=== PATIENT | male | born 1990 | race Caucasian/White ===

== ENCOUNTER 2024-07-30 10:29 | Emergency (ER) | payer MEDICAID, SELFPAY ==
--- NOTE | 2024-07-30 10:48 | XR_ITS ---
Examination: CT abdomen and pelvis without contrast. Coronal 3-D reconstructions. Sagittal 2-D reconstructions. Date and time of exam:July 30, 1999 2512 noon INDICATIONS: Generalized abdominal pain and nausea vomiting beginning today CTDI: vol (mGy): 5.18 DLP: (mGycm): 310 Technique: Axial images of the abdomen have been obtained, 3 mm slice thickness Intravenous contrast material has not been administered. Low dose protocols were performed. One or more of the following dose reduction techniques were used; automated exposure control, adjustment of the mA and/or KV according to patient size, use of iterative reconstruction technique. Findings: No focal liver or splenic lesions Gallbladder is not visualized No pancreatic mass No renal or ureteral calculi, no hydronephrosis Aorta normal size No pericecal inflammatory change No diverticulitis Contracted urinary bladder Intact osseous structures IMPRESSION: No renal or ureteral calculi, no hydronephrosis No CT findings of appendicitis bowel obstruction or diverticulitis
--- NOTE | 2024-07-30 10:49 | PD.EDRME ---
Rapid Medical Screening Exam RME Arrival date/time: 07/30/24 10:29 34-year-old male with no known medical history presents to the emergency room with a chief complaint of 10 out of 10 upper abdominal pain, nausea, vomiting x 1 day. I have greeted and performed a focused initial assessment of this patient. A comprehensive ED assessment and evaluation of the patient, analysis of all test results, and completion of the medical decision making process will be conducted by additional ED providers. Chief Complaint: Nausea/Vomiting/Diarrhea Vital signs reviewed by provider: Yes
[2024-07-30 11:02] VITALS: BP 126/77; PULSE 89; RESP 22; TEMP 36.4; O2SAT 100; BMI 18.1
[2024-07-30] MEDS: HYDROcodone/APAP 5/325 TABLET 1 TAB PO (11:17)
[2024-07-30] MEDS: ONDANSETRON ODT 4 MG TABRAP PO (11:18)
[2024-07-30] MEDS: MG HYD/AL HYD/SIME (Maalox Reg) SUSP 30 ML UDC PO (11:18)
[2024-07-30 11:26] LABS: Basophils # (Auto) 0.1 Thou/mm3 (0.0-0.2); Basophils % (Auto) 1 % (0-2.5); Eosinophils % (Auto) 0 % (0-10); Hematocrit 46.1 % (41.0-53.0); Hemoglobin 15.9 g/dL (13.5-16.0); Immature Granulocytes % (Auto) 0 % (0-0); Immature Granulocytes Auto 0.03 Thou/mm3 (0.00-0.00); Lymphocytes # (Auto) 0.8 Thou/mm3 (1.0-4.8); Lymphocytes % (Auto) 7 % (10-50); Mean Corpuscular HGB Conc 34.5 g/dl (31.0-37.0); Mean Corpuscular Hemoglobin 30.6 pg (25.0-35.0); Mean Corpuscular Volume 89 fL (80-100); Monocytes # (Auto) 0.4 Thou/mm3 (0.0-0.8); Monocytes % (Auto) 3 % (0-12); Neutrophils # (Auto) 9.5 Thou/mm3 (1.8-7.7); Neutrophils % (Auto) 89 % (37-80); Nucleated Red Blood Cell % 0 /100 WBC (0); Platelet Count 293 Thou/mm3 (140-440); RDW Standard Deviation 39.3 fL (35.1-43.9); Red Blood Count 5.19 Miln/mm3 (4.50-5.90); White Blood Count 10.7 Thou/mm3 (3.8-10.6)
[2024-07-30 11:47] LABS: Alanine Aminotransferase 18 U/L (10-49); Albumin, Serum 5.2 gm/dL (3.5-5.0); Alkaline Phosphatase 81 U/L (46-116); Anion Gap 11 (7-16); Aspartate Amino Transferase 19 U/L (0-34); BUN/Creatinine Ratio 10 Ratio (12-20); Bilirubin,Total 1.3 mg/dL (0.3-1.2); Blood Urea Nitrogen 10 mg/dL (9-23); Calcium 10.8 mg/dL (8.3-10.6); Calcium (Corrected) 10.8 mg/dL (8.5-10.1); Carbon Dioxide 25.5 mMol/L (20.0-31.0); Chloride 104 mMol/L (98-107); Estimated Creatinine Clearance 95.9 mL/min (>60); Globulin 2.6 gm/dL (2.3-3.5); Glucose 167 mg/dL (74-106); Lipase 50 U/L (12-53); Osmolality,Calculated 282 (275-295); Potassium 4.6 mMol/L (3.4-5.1); Sodium 140 mMol/L (136-145); Total Protein 7.8 gm/dL (5.7-8.2); eGFR > 60 See Note
[2024-07-30 15:05] VITALS: BP 118/66; PULSE 87; RESP 18; TEMP 36.6; O2SAT 100
[2024-07-30] MEDS: SODIUM CHLORIDE 0.9% 1000 ML 1,000 ML 999 ML IV (15:27)
[2024-07-30] MEDS: HYDROmorphone INJ 2 MG/ML VIAL 1 MG IVP (15:27)
[2024-07-30] MEDS: ONDANSETRON INJ 2 MG/ML INJ 2 ML 4 MG IV (15:27)
[2024-07-30 16:23] VITALS: BP 114/71; PULSE 76; RESP 18; TEMP 36.8; O2SAT 97
--- NOTE | 2024-07-30 16:32 | EDNOTE_ITS ---
Nausea/Vomit./Diarrhea-RME/HPI General Chief complaint: Nausea/Vomiting/Diarrhea Stated complaint: VOMITING, FACIAL NUMBBNESS Time Seen by Provider: 07/30/24 11:55 Arrival date/time: 07/30/24 10:29 RME / HPI RME / HPI Narrative: 07/30/24 10:29 34-year-old male with no known medical history presents to the emergency room with a chief complaint of 10 out of 10 upper abdominal pain, nausea, vomiting x 1 day. I have greeted and performed a focused initial assessment of this patient. A comprehensive ED assessment and evaluation of the patient, analysis of all test results, and completion of the medical decision making process will be conducted by additional ED providers. This section includes all my notes and documentations, including HPI, PE, and ED course.? Fabián Voss MD HPI: 34-year-old male here with about 24-hour history of vomiting and diarrhea. No hematemesis or coffee-ground emesis. No rectal bleeding or tarry stools. Reports abdominal cramping. No other complaints. ROS: All negative except as documented in HPI. Physical Exam: General:? Alert and oriented.? Appearance of malaise noted. Eyes:? Conjunctivae and lids clear.? ENT:? No nasal congestion.? Neck:? Supple.? Heart:? RRR.? Lungs:? No respiratory distress.? Good air movement.? No rhonchi, wheezing, rales.?? Abdomen:? Soft with equivocal tenderness, difficult to localize. Legs:? No clubbing, cyanosis, edema.? Skin:? Warm and dry.?? Neuro:? Alert and oriented X 3.?? I reviewed all diagnostic test results. My review of the CT report is? Blood tests unremarkable. At this point, diagnoses include?gastroenteritis. Treatment here included?IV fluid and Zofran and Dilaudid. Significant improvement noted. Recommended supportive care. Based on my best medical judgment, made decision no further evaluation or treatment indicated at this time.? Patient understands and agrees to the discharge instructions customized and printed, see below. Discharge Instructions from Dr. Voss: 1. After evaluation, you have stomach flu.? See attached handout on gastroenteritis. 2. This is caused by virus germs.? And we do not have good medications to kill the virus germs.? But your immune system will fight it off. 3. Your job is to stay hydrated.? Zofran for nausea/vomiting.? Increase oral fluid and maintain clear urine.? If dark or yellow, increase oral fluid. Clear liquid diet for 24 hours and advance slowly as tolerated. Tylenol with codeine for severe pain. 4. Do not take any medications to stop your diarrhea.? But try to replenish the fluid and electrolytes you are losing. 5. Some good choices are water (but not only water because it will cause electrolyte abnormalities), sports drinks like Gatorade (with less sugar content), coconut water, chicken stock, and other fluid with electrolytes (like Pedialyte). 6. See a private doctor on 08/01/2024 if not completely better. 7. Seek immediate medical care with worsening or with any concerns. Related Data Previous Rx's ?Medication ?Instructions ?Recorded fexofenadine 60 mg tablet (Flaca 60 mg PO BID #60 tabs 03/30/19 Allergy) ibuprofen 800 mg tablet 800 mg PO QID PRN pain #60 tabs 03/30/19 ibuprofen 600 mg tablet 600 mg PO Q6H #30 tabs 06/20/23 acetaminophen 300 mg-codeine 30 mg 2 tab PO TID PRN pain #10 tabs 07/30/24 tablet ondansetron 4 mg disintegrating 4 mg PO TID PRN nausea and 07/30/24 tablet vomiting 5 days #10 tabs Allergies Allergy/AdvReac Type Severity Reaction Status Date / Time No Known Allergies Allergy Verified 06/20/23 10:20 Review of Systems Review of Systems Systems Reviewed: All systems reviewed, normal except as documented Past Medical History Past Medical History CARDIAC: Negative Congestive Heart Failure RESPIRATORY: Negative Chronic Obstructive Pulmonary Disease (COPD) GENITOURINARY: Negative Renal Disease ENT: Positive Ear Infection ENDOCRINE: Negative Diabetes Mellitus Type 1 or Diabetes Mellitus Type 2 OTHER HISTORY: Positive Chicken Pox Social History SMOKING STATUS: Former smoker SUBSTANCE USE: does not use ED Exam Narrative Physical exam: As noted in HPI Course Quality Measures none Orders Category Date Time Status Saline [Insert IV] NOW Care 07/30/24 14:[address] abdomen pelvis wo con Stat Exams 07/30/24 10:48 Completed CBC Stat Lab 07/30/24 11:08 Completed CMP [Comprehensive Metabolic Panel] Stat Lab 07/30/24 11:08 Completed Lipase Stat Lab 07/30/24 11:08 Completed UA [Urinalysis] Stat Lab 07/30/24 10:48 Ordered Urine Culture Stat Lab 07/30/24 10:48 Ordered HYDROcodone*/APAP 5/325 [[place] 5/325] Med 07/30/24 10:48 Discontinued 1 tab PO X1 ONE HYDROmorphone INJ [Dilaudid Inj] Med 07/30/24 14:48 Discontinued 1 mg IVP X1 ONE Ondansetron Inj [Zofran Inj] Med 07/30/24 14:48 Discontinued 4 mg IV X1 ONE Ondansetron Odt [Zofran Odt] Med 07/30/24 10:48 Discontinued 4 mg PO X1 ONE Sodium Chloride 0.9% 1000 ml [Ns] 1,000 ml Med 07/30/24 14:48 Discontinued IV 999 mls/hr mg Hyd/Al Hyd/Asim Susp [Maalox Susp] Med 07/30/24 10:48 Discontinued 30 ml PO X1 ONE Vital Signs Vital signs: Vital Signs Temperature 97.5 F 07/30/24 11:02 Pulse Rate 89 07/30/24 11:02 Respiratory Rate 22 H 07/30/24 11:02 Blood Pressure 126/77 07/30/24 11:02 Pulse Oximetry (%) 100 07/30/24 11:02 Oxygen Delivery Method Room Air 07/30/24 11:02 Pulse ox is 100% on room air which is adequate. Nausea/Vomiting/Diarrhea Patient data External records reviewed:: [facility] previous records (I reviewed ED visit on 07/05/2023 ) Clinical information provided by:: patient and family Social determinants that could affect healthcare access:: none Patient has the following chronic illnesses:: None reported How is presenting disease/condition affected by chronic disease/condition?: no chronic disease Evaluation data The following diagnostics were reviewed and interpreted by me:: lab results and radiology exam(s) Lab and/or radiology exams considered but not ordered:: None Interpretation Summary: Gastroenteritis Medications / Prescriptions Medications / Prescriptions considered but not ordered:: None Medication administrations:: Medication Administration History Discontinued Medications Hydrocodone Bitart/Acetaminophen (Hydrocodone/Apap 5/325 Tablet) 1 tab PO X1 ONE Stop: 07/30/24 10:49 Last Admin: 07/30/24 11:17 Dose: 1 tab Documented By: DO Al Hydrox/Mg Hydrox/Simethicone (Mg Hyd/Al Hyd/Asim (Maalox Reg) Susp 30 Ml Udc) 30 ml PO X1 ONE Stop: 07/30/24 10:49 Last Admin: 07/30/24 11:18 Dose: 30 ml Documented By: DO Hydromorphone HCl (Hydromorphone Inj 2 Mg/Ml Vial) 1 mg IVP X1 ONE Stop: 07/30/24 14:49 Last Admin: 07/30/24 15:27 Dose: 1 mg Documented By: KISHAN Sodium Chloride (Ns) 1,000 mls @ 999 mls/hr IV .Q1H1M ONE Stop: 07/30/24 15:48 Last Admin: 07/30/24 15:27 Dose: 999 mls/hr Documented By: KISHAN Ondansetron HCl (Ondansetron Odt 4 Mg Tabrap) 4 mg PO X1 ONE; Protocol Stop: 07/30/24 10:49 Last Admin: 07/30/24 11:18 Dose: 4 mg Documented By: DO Ondansetron HCl (Ondansetron Inj 2 Mg/Ml Inj 2 Ml) 4 mg IV X1 ONE; Protocol Stop: 07/30/24 14:49 Last Admin: 07/30/24 15:27 Dose: 4 mg Documented By: KISHAN IV fluid and Zofran and Dilaudid helped him significantly. Consultations Consultation(s) initiated? (list below): No Diagnosis Nausea Differential Diagnosis: traveler's diarrhea, food poisoning, g astroenteritis, drug-induced nausea and vomiting, dehydration and other (Gatritis ) Most likely diagnosis given after review of the tests above:: Gastroenteritis Admission Indicated Admission indicated?: not indicated Explain why admission is indicated or not indicated:: Does not meet admission criteria Admission Request Was there a request for admission?: No Disposition Plan Disposition Plan: Discharge Discharge Attestation Discharge Attestation: The patient and all family members were given an opportunity to ask questions and understood the discharge instructions. Discharge instructions specifically effects, indications for sooner follow up or return to the emergency department, and the expected course of current diagnosis. Patient condition: Stable Discharge Plan Plan Patient Disposition: HOME (Self Care) Prescriptions/Referrals Prescriptions/Med Rec: New acetaminophen-codeine 300-30 mg tablet 2 tab PO TID MDD 6 PRN (Reason: pain) Qty: 10 0RF ondansetron 4 mg tablet,disintegrating 4 mg PO TID PRN (Reason: nausea and vomiting) 5 Days Qty: 10 0RF No Action ibuprofen 800 mg tablet 800 mg PO QID PRN (Reason: pain) Qty: 60 0RF fexofenadine [Flaca Allergy] 60 mg tablet 60 mg PO BID Qty: 60 0RF ibuprofen 600 mg tablet 600 mg PO Q6H Qty: 30 0RF Referrals: No Primary/Family,Physician [Primary Care Provider] - In 1 week Problem List Clinical Impression: Gastroenteritis Patient/Caregiver Discharge Instructions Discharge Activity: activity as tolerated Education Materials: ED Gastroenteritis, Viral (Adult) Additional Instructions: Discharge Instructions from Dr. Voss: 1. After evaluation, you have stomach flu.? See attached handout on gastroenteritis. 2. This is caused by virus germs.? And we do not have good medications to kill the virus germs.? But your immune system will fight it off. 3. Your job is to stay hydrated.? Zofran for nausea/vomiting.? Increase oral fluid and maintain clear urine.? If dark or yellow, increase oral fluid. Clear liquid diet for 24 hours and advance slowly as tolerated. Tylenol with codeine for severe pain. 4. Do not take any medications to stop your diarrhea.? But try to replenish the fluid and electrolytes you are losing. 5. Some good choices are water (but not only water because it will cause electrolyte abnormalities), sports drinks like Gatorade (with less sugar content), coconut water, chicken stock, and other fluid with electrolytes (like Pedialyte). 6. See a private doctor on 08/01/2024 if not completely better. 7. Seek immediate medical care with worsening or with any concerns. Print Language: Amharic Stand Alone Forms: Izzy Award Info., Patient Portal Info Letter
[2024-07-30 17:20] VITALS: BP 115/72; PULSE 85; RESP 18; TEMP 37.1; O2SAT 98
== END 2024-07-30 17:45 | disposition home or self-care (01) ==
PROVIDERS: Nurse Practitioner Family; Emergency Provider Emergency Medicine
DX: K52.9 Noninfective gastroenteritis and colitis, unspecified (principal)
CPT/HCPCS: 36415; 74176; 80053; 81001; 83690; 85025; 87086; 96361; 96374; 96375; 99284; J2405; J3490; J7030; Q0162; A9270